=== PATIENT | female | born 1995 | race Caucasian/White ===

== ENCOUNTER 2017-05-11 15:21 | Inpatient (IN) | payer BC, SELFPAY ==
[2017-05-11 15:44] VITALS: BMI 22.8
[2017-05-11] MEDS: Lactated Ringers 1,000 ML 50 ML IV ×2 (15:50→16:50)
[2017-05-11] MEDS: Betamethasone/Betamethasone 30 MG/5 ML Vial 12 MG IM (16:05)
[2017-05-11 16:15] LABS: Hematocrit 36.7 % (37-47); Hemoglobin 12.2 g/dl (12.0-15.0); Mean Corp Hgb Conc 33.2 g/gl (32-36); Mean Corpuscular Hgb 28.9 pg (27.0-32.0); Mean Platelet Vol. 11.5 fl (6.2-12.0); Platelet Count 183 K/mm3 (150-450); RBC Distribution Width SD 41.3 fl (35.1-43.9); Red Blood Count 4.22 M/mm3 (4.2-5.4); White Blood Count 14.7 K/mm3 (4.4-11.0)
[2017-05-11 16:20] LABS: Scan Indicated on CBC? Y/N NO
[2017-05-11 17:29] LABS: Group B Strep DNA By PCR Negative (Negative); Internal Control PASS; Probe Check PASS; Specimen Processing Control PASS
--- NOTE | 2017-05-11 17:48 | PLAC_PTH ---
PATIENT: ALEX CAMACHO LOC: [facility] U#:[id number] AGE/SX: 21/F ROOM: WP006 RE05/11/[address]: Dr. Nohemi Henao MD : 1995 BED: 1 DIS: 05/13/2017 SPEC #: [id number] RECD: 05/13/17 10:35 STATUS: BAL[place] YOUNG #: [id number] CRIS: 05/11/17 17:[address]: Nohemi Santana DEPT: SURGICAL PATHOLOGY RECD BY: Lele Alonso ENTERED: 05/13/17 10:36 SP TYPE: PLACENTA OTHR DR: Dr. Jeffry Garcia, DO Tissues: Placenta, NOS Procedures: Surgery Specimen Level V HEADER OPERATION: Vaginal delivery PRE-OP DIAGNOSIS: 36 2/7wga, labor TISSUE SUBMITTED: Placenta MICROSCOPIC DIAGNOSIS Placenta: Placental disc - third trimester placenta (402 gm). Membranes - no pathologic diagnosis. Umbilical cord - three blood vessels and no pathologic diagnosis. SJ:gypsy 05/14/17 MICROSCOPIC DESCRIPTION Slides are reviewed. GROSS DESCRIPTION SPECIMEN: PLACENTA / CLINICAL INFORMATION: A. Weight: 2.661 kg B. Gestational Age: 36 weeks C. Sex: Female PLACENTAL WEIGHT (POST FIXATION): 402 gm PLACENTAL DIMENSIONS: 18 x 15 x 2.8 cm PLACENTAL SHAPE: Usual ovoid PLACENTAL WEIGHT FOR GESTATIONAL AGE: Within 10-99th percentile MEMBRANES - Present A. Insertion: Marginal B. Site of rupture from edge: 4 cm from edge of placental disc C. Color of membrane: Kingsley-sanchez D. Abnormalities: None UMBILICAL CORD - Present A. Color: Kingsley-sanchez B. Insertion: Eccentric C. Length: 32 cm D. Diameter: 1.2 cm E. Number of vessels: Three F. Abnormalities: None PLACENTAL DISC - Present A. Color of surface: Kingsley-sanchez B. surface abnormalities: None C. Maternal cotyledons: Intact with minimal tears D. Attached retro placental clot: No clot E. Cut surface: Dark red and spongy F. Lesions: None G. Separate clot: Absent SECTIONS SUBMITTED: 1. Membrane roll and umbilical cord ( end notched) 2. Placental disc, and maternal surfaces 3. Placental disc, and maternal surfaces 4. Placental disc, and maternal surfaces AM:gypsy 05/13/17 TC:4 CPT: 16221
--- NOTE | 2017-05-11 18:09 | PCM.PN.BLA ---
Progress Note LABOR PROGRESS NOTE No complaints. Comfortable with epidural. AVSS GEN - NAD, AAO x 3 SVE 9.5/100/-1 per RN exam FHR 125, moderate variability, + accelerations, no decelerations TOCO 4/10 min A/P: 21yo @ 36 2/7wga with labor, active phase, Cat I FHr -s/p Betamethasone injection x 1 -Expectant management
[2017-05-11] MEDS: Oxytocin 30 units/NS 500 ml 30 UNITS/500 ML IV.SOLN 334 UNITS IV (19:55)
--- NOTE | 2017-05-11 20:07 | PCM.OB.VAG ---
- Problem List (1) (spontaneous vaginal delivery) Status: Acute (2) delivery Status: Acute (3) 36 weeks gestation of Status: Acute Vaginal Delivery Maternal Presentation: Active Labor Amniotic Membrane Rupture Type: Artificial Rupture of Membrane time: 05/11/17 1942h Amniotic Fluid Description: Clear Final NADEGE: 06/06/17 Final NADEGE Source: US <20 weeks Gestational age: 36 Weeks and 2 Days Date of Procedure: 05/11/17 Pre-Operative Diagnosis: 36 2/7wga, labor Post-Operative Diagnosis: 36 2/7wga, labor Surgery/ Procedure Performed: Spontaneous Vaginal Delivery Anesthesiologist: David Olsen Type of Anesthesia: Epidural Description of Procedure: Cervical exam was FD/BBOW with Cat I FHR. Amniotomy performed with clear fluid at 1742h. The head was palpable at zero station with descent to +1 following rupture. The patient pushed to delivery a vigorous female infant in direct OA at 1748h. The was placed on the maternal abdomen and further attended by nursery personnel. The cord was doubly clamped and cut at 5 minutes of life. Cord blood was obtained. The placenta delivered spontaneously and appeared intact on inspection. The fundus was firm at 3 FW below the umbilicus. A first degree vaginal laceration was repaired with 3-0 Vicryl Rapide for hemostasis with hemostasis attained. Presentation: Vertex Placental Delivery Description: Spontaneous Placenta Disposition: Sent to Pathology Cord Vessel Description: 3 Vessels Nuchal Cord Compression: Without compression Cord Entanglement: None Estimated Blood Loss: 250 A gender: Female (1 minute): 8 (5 minute): 9 Episiotomy Description: None Laceration: Midline, Vaginal Extension/lac, 1st degree Medications given after delivery: IV Pitocin Complications: None
--- NOTE | 2017-05-11 20:15 | PCM.DCVAG ---
Discharge Diet: No Restrictions Discharge Activity: Return to Normal Activity, May not drive while taking narcotic pain medications., May Shower May resume sexual activity in: 6 weeks Call your doctor if your incision/area has: Continuous Slow Oozing, Sudden Increased Bleeding, Increased Pain/ Swelling, Increased Redness, Foul Smelling Discharge Additional Instructions: If you experience any of the following, contact your healthcare provider. Bleeding that soaks a pad every hour for 2 hours Fever 100.4 or higher Unrelieved incision or abdominal pain Swelling, redness, discharge or bleeding from your incision or episiotomy site Your incision begins to separate Problems urinating (including inability to urinate or burning while urinating). Visual changes Severe headache Flu-like symptoms Pain or redness in one of both of your breasts Pain, warmth, tenderness or swelling in your legs, especially the calf area Frequent nausea and vomiting Symptoms of depression or anxiety If you experience any of the following, call 911 or go to the nearest Emergency Room. Chest pain Problems breathing Seizure activity Partial or complete paralysis of a body part, slurred speech, weakness or drooping of the face, or a sudden inability to walk or hold your balance Allergies/Adverse Reactions: Allergies No Known Allergies Allergy (Verified 05/11/17 15:51) Medications to take at Discharge Vits [Prenatabs FA ] 1 tablet PO DAILY 11/20/14 Ibuprofen 800 mg PO TID PRN #30 tab 05/12/17 Senna/Docusate Sodium [Senokot-S] 1 - 2 tablet PO DAILY PRN PRN #60 tablet 05/12/17 The following prescriptions were given: Ibuprofen 800 mg PO TID PRN #30 tab PRN Reason: Pain Orders to be completed after discharge: Electric breast pump Location: None Selected Please Follow Up With: Nohemi Garcia MD When: 6 weeks Primary Care Physician: Jeffry Garcia MD [Primary Care Provider] -
--- NOTE | 2017-05-11 20:16 | DCINST_ITS ---
Discharge Diet: No Restrictions Discharge Activity: Return to Normal Activity, May not drive while taking narcotic pain medications., May Shower May resume sexual activity in: 6 weeks Call your doctor if your incision/area has: Continuous Slow Oozing, Sudden Increased Bleeding, Increased Pain/ Swelling, Increased Redness, Foul Smelling Discharge Additional Instructions: If you experience any of the following, contact your healthcare provider. * Bleeding that soaks a pad every hour for 2 hours * Fever 100.4 or higher * Unrelieved incision or abdominal pain * Swelling, redness, discharge or bleeding from your incision or episiotomy site * Your incision begins to separate * Problems urinating (including inability to urinate or burning while urinating) . * Visual changes * Severe headache * Flu-like symptoms * Pain or redness in one of both of your breasts * Pain, warmth, tenderness or swelling in your legs, especially the calf area * Frequent nausea and vomiting * Symptoms of depression or anxiety If you experience any of the following, call 911 or go to the nearest Emergency Room. * Chest pain * Problems breathing * Seizure activity * Partial or complete paralysis of a body part, slurred speech, weakness or drooping of the face, or a sudden inability to walk or hold your balance Allergies/Adverse Reactions: Allergies No Known Allergies Allergy (Verified 05/11/17 15:51) Medications to take at Discharge Vits [Prenatabs FA ] 1 tablet PO DAILY 11/20/14 Ibuprofen 800 mg PO TID PRN #30 tab 05/12/17 Senna/Docusate Sodium [Senokot-S] 1 - 2 tablet PO DAILY PRN PRN #60 tablet 05/12 The following prescriptions were given: Ibuprofen 800 mg PO TID PRN #30 tab PRN Reason: Pain Orders to be completed after discharge: Electric breast pump Location: None Selected Please Follow Up With: Nohemi Garcia MD When: 6 weeks Primary Care Physician: Jeffry Garcia MD [Primary Care Provider] -
[2017-05-11] MEDS: Oxytocin 30 units/NS 500 ml 30 UNITS/500 ML IV.SOLN 167 UNITS IV (20:25)
[2017-05-11 23:41] VITALS: BP 129/61; PULSE 95; RESP 18; TEMP 36.3; O2SAT 97
[2017-05-12 03:22] VITALS: BP 115/50; PULSE 70; RESP 16; TEMP 36.7; O2SAT 99
--- NOTE | 2017-05-12 07:57 | PCM.PN.OB ---
Patient Problems: Active and Suspected Problems (spontaneous vaginal delivery) (Acute) delivery (Acute) 36 weeks gestation of (Acute) Subjective: No issues overnight. She feels well. Denies heavy lochia. No complaints. Infant is nursing well. Objective: AVSS - Physical Exam General: Alert, Oriented x3, Cooperative, No apparent distress HEENT: Atraumatic, Normocephalic Lungs: Normal air movement Cardiovascular: Regular rate, Regular Rhythm, Normal S1, Normal S2 Abdomen: Soft, Non Tender, Non-Distended, - - Fundus firm and nontender at 3 FW below umbilicus, lochia scant Extremities: No edema, No Calf Tenderness Neurological: Neuro grossly intact Psych/Mental Status: Normal Affect, Appropriate, Alert and oriented to time, place, person, mood and affect Vital Signs Temp Pulse Resp BP Pulse Ox 98.1 F 70 16 115/50 L 99 05/12/17 03:22 05/12/17 03:22 05/12/17 03:22 05/12/17 03:22 05/12/17 03:22 Oxygen Delivery Method Room Air Weight: 64.41 kg Body Mass Index (BMI) 22.8 Intake and Output for Last 24 Hours 05/10/17 05/11/17 05/12/17 23:59 23:59 23:59 Intake Total 1936 / 1936 Output Total 700 / 700 500 / 500 Balance 1236 / 1236 -500 / -500 Laboratory Tests Past 24 Hrs 05/11/17 05/11/17 05/11/17 16:00 16:00 16:00 WBC 14.7 H RBC 4.22 Hgb 12.2 Hct 36.7 L MCV 87.0 MCH 28.9 MCHC 33.2 RDW 13.0 RDW Differential 41.3 Plt Count 183 MPV 11.5 Group B Strep DNA Negative Specimen Comment Not Reportable Blood Type A NEGATIVE Antibody Screen POSITIVE H Antibody Identification ANTI-D Screen Baby's Blood Type Baby's JESSIE 05/11/17 22:30 WBC RBC Hgb Hct MCV MCH MCHC RDW RDW Differential Plt Count MPV Group B Strep DNA Specimen Comment Blood Type Antibody Screen Antibody Identification Screen NEGATIVE Baby's Blood Type A POSITIVE Baby's JESSIE NEGATIVE Assessment/Plan Active and Suspected Problems (spontaneous vaginal delivery) (Acute) delivery (Acute) 36 weeks gestation of (Acute) 21yo PPD#1 s/p doing well. -Rh negative - for Rhogam, infant A positive -Rubella immune -Routine care -
[2017-05-12 08:08] VITALS: BP 91/54; PULSE 71; RESP 16; TEMP 36.9; O2SAT 99
[2017-05-12 12:21] VITALS: BP 124/61; PULSE 71; RESP 16; TEMP 36.7; O2SAT 100
[2017-05-12 15:26] VITALS: BP 121/57; PULSE 68; RESP 16; TEMP 36.7; O2SAT 99
[2017-05-12 20:10] VITALS: BP 126/76; PULSE 91; RESP 18; TEMP 36.6; O2SAT 94
[2017-05-13 03:30] VITALS: BP 106/53; PULSE 63; RESP 18; TEMP 36.5; O2SAT 100
[2017-05-13 08:10] VITALS: BP 122/71; PULSE 60; RESP 16; TEMP 36.8; O2SAT 98
--- NOTE | 2017-05-13 08:11 | PCM.PN.OB ---
Patient Problems: Active and Suspected Problems (spontaneous vaginal delivery) (Acute) delivery (Acute) 36 weeks gestation of (Acute) Subjective: No issues overnight. Has cramping intermittently. Denies heavy lochia. continues to go well. Objective: AVSS - Physical Exam General: Alert, Oriented x3, Cooperative, No apparent distress HEENT: Atraumatic, Normocephalic Lungs: Clear to auscultation, Normal air movement Cardiovascular: Regular rate, Regular Rhythm, Normal S1, Normal S2 Abdomen: Soft, Non Tender, Non-Distended, - - Fundus firm and nontender Extremities: No edema, No Calf Tenderness Neurological: Neuro grossly intact Psych/Mental Status: Normal Affect, Appropriate, Alert and oriented to time, place, person, mood and affect Vital Signs Temp Pulse Resp BP Pulse Ox 97.7 F L 63 18 106/53 L 100 05/13/17 03:30 05/13/17 03:30 05/13/17 03:30 05/13/17 03:30 05/13/17 03:30 Oxygen Delivery Method Room Air Weight: 64.41 kg Body Mass Index (BMI) 22.8 Intake and Output for Last 24 Hours 05/11/17 05/12/17 05/13/17 23:59 23:59 23:59 Intake Total 1936 / 1936 Output Total 700 / 700 500 / 500 Balance 1236 / 1236 -500 / -500 Assessment/Plan Active and Suspected Problems (spontaneous vaginal delivery) (Acute) delivery (Acute) 36 weeks gestation of (Acute) 21yo PPD#2 s/p doing well. -Rh negative - s/p Rhogam -Rubella immune -Routine care - -d/c home today
[2017-05-14 15:17] LABS: Pathology Specimen OB SEE PATHOLOGY REPORT
== END 2017-05-13 12:25 | disposition home or self-care (01) | DRG 775 ==
LOC: WPOUT 15:31 → WP 15:31 → WPOUT 15:45
PROVIDERS: Admitting Provider Obstetrics & Gynecology; Family Provider Family Medicine; PCP Family Medicine; Visit Provider Obstetrics & Gynecology
DX: O60.14X0 Preterm labor third trimester with preterm delivery third trimester, not applicable or unspecified (principal); O70.0 First degree perineal laceration during delivery; Z37.0 Single live birth; Z3A.36 36 weeks gestation of pregnancy; Z87.891 Personal history of nicotine dependence
CPT/HCPCS: 59025; 59050; 85027; 85461; 86850; 86870; 86900; 87081; 87653; 88307; 90384; 99218; J7120; A4216; G0378; J0702; J2790